=== PATIENT | female | born 1960 | race Caucasian/White ===

== ENCOUNTER 2023-02-25 06:58 | Day surgery (SDC) | payer OTHER ==
[~2023-02-25] VITALS: Ht 152.4 cm; Wt 63.5 kg
[2023-02-25] MEDS ORDERED: LIDOCAINE 2% 100 MG/5 ML UJET TP ONE (08:51)
[2023-02-25] MEDS ORDERED: fentaNYL citrate 0.05 MG/ML VIAL ONE (08:51)
[2023-02-25] MEDS ORDERED: fentaNYL citrate 0.05 MG/ML VIAL IVP ONE (12:25)
== END 2023-02-25 09:58 | disposition home or self-care (01) ==
LOC: MDS 06:58 → MMU 06:58 → MDS 09:58
PROVIDERS: ATTEND Internal Medicine Gastroenterology
DX: Z12.11 Encounter for screening for malignant neoplasm of colon (principal); K63.5 Polyp of colon; K64.9 Unspecified hemorrhoids; I10 Essential (primary) hypertension; E78.00 Pure hypercholesterolemia, unspecified; Z90.49 Acquired absence of other specified parts of digestive tract; Z79.899 Other long term (current) drug therapy
CPT/HCPCS: J3010